=== PATIENT | male | born 1990 | race Caucasian/White ===

== ENCOUNTER 2018-02-09 07:00 | Inpatient (IN) | payer MEDICAID ==
[~2018-02-09] VITALS: Ht 175.3 cm; Wt 72.6 kg
[2018-02-09] VITALS (12 sets, daily range): BP systolic 100–133; BP diastolic 55–89
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
[2018-02-09] MEDS ORDERED: ceFAZolin 1gm/50ml Premix 50 ML IV ONE (07:15)
[2018-02-09] MEDS ORDERED: HYDROmorphone 1mg/ml Carpuject IVP ONE ×2 (07:15→08:15)
[2018-02-09] MEDS ORDERED: DiphenhydrAMINE 50mg/ml Inj IVP ONE (07:15)
[2018-02-09 07:32] LABS: HEMATOCRIT 48.8 % (42.0-52.0); HEMOGLOBIN 16.4 G/DL (14.2-18.0); LYMPHOCYTES % (AUTO) 40.2 % (20.0-45.0); MEAN CORPUSCULAR VOLUME 86 FL (80-99); NEUTROPHILS % (AUTO) 46.9 % (45.0-75.0); PLATELET COUNT 247 K/UL (150-450); RED BLOOD COUNT 5.66 M/UL (4.70-6.10); RED CELL DISTRIBUTION WIDTH 10.8 % (11.6-14.8)
[2018-02-09 07:36] LABS: INR 1.1 (0.9-1.1)
[2018-02-09 07:37] LABS: ANION GAP 9 mmol/L (5-15); BLOOD UREA NITROGEN 15 mg/dL (7-18); CALCIUM 8.6 MG/DL (8.5-10.1); CARBON DIOXIDE 25 MMOL/L (21-32); CHLORIDE 106 MMOL/L (98-107); POTASSIUM 3.8 MMOL/L (3.5-5.1); SODIUM 140 MMOL/L (136-145)
[2018-02-09 07:54] LABS: ALANINE AMINOTRANSFERASE 22 U/L (12-78); ALBUMIN 4.1 G/DL (3.4-5.0); ALBUMIN/GLOBULIN RATIO 1.1 (1.0-2.7); ALKALINE PHOSPHATASE 57 U/L (46-116); ASPARTATE AMINO TRANSFERASE 22 U/L (15-37); BILIRUBIN,TOTAL 0.7 MG/DL (0.2-1.0); CKMB 1.3 NG/ML (0.0-3.6); CREATINE KINASE 148 U/L (26-308)
[2018-02-09] MEDS ORDERED: Lidocaine 1% MPF 10mg/ml 5ml IM ONE (08:15)
[2018-02-09] MEDS ORDERED: Bacitracin Oint UD TOPIC ONE (08:15)
[2018-02-09] MEDS ORDERED: fentaNYL 100 mcg/2 mL IV ONE ×3 (08:45→14:00)
[2018-02-09] MEDS ORDERED: NKM (08:56)
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
--- NOTE | 2018-02-09 12:24 | Pre-Procedure Note/Attestation ---
Pre-Procedure Note/Attestation Complete Prior to Procedure Planned Procedure: left Procedure Narrative: Left both bone open forearm fracture ORIF Indications for Procedure Pre-Operative Diagnosis: Left open both bone forearm fracture Attestation I attest that I discussed the nature of the procedure; its benefits; risks and complications; and alternatives (and the risks and benefits of such alternatives ), prior to the procedure, with the patient (or the patient's legal client care representative). I attest that, if there was a reasonable possibility of needing a blood transfusion, the patient (or the patient's legal client care representative) was given the [facility] standardized written summary, pursuant to the [place] Blood Safety Act ([place] Health and Safety Code # 1645, as amended). I attest that I re-evaluated the patient just prior to the surgery and that there has been no change in the patient's H&P, except as documented below: Robert Sanchez MD Feb 09, 2018 12:24
[2018-02-09] MEDS ORDERED: NS Irrig 1000ml ONE (12:40)
[2018-02-09] MEDS ORDERED: LR 1000ml ONE (12:40)
[2018-02-09] MEDS ORDERED: Sterile Water Irrig 1000ml IRRIG ONE (12:40)
[2018-02-09] MEDS ORDERED: Bacitracin 50000 Units Vial ONE ×2 (12:49→13:09)
[2018-02-09] MEDS ORDERED: NeoSporin Gu Irrig 1ml Amp IRRIG ONE (12:49)
[2018-02-09] MEDS ORDERED: Ropivacaine 5mg/ml Vial 30ml INJ ONE (12:49)
[2018-02-09] MEDS ORDERED: Propofol 200mg/20ml IV ONE ×2 (12:59→15:23)
[2018-02-09] MEDS ORDERED: Lidocaine 1% MPF 10mg/ml 5ml ONE ×2 (12:59→15:23)
--- NOTE | 2018-02-09 13:31 | Anethesia Preoperative Eval ---
Anesthesia Pre-op PMH/ROS General Date of Evaluation: Feb 09, 2018 Time of Evaluation: 12:00 ASA Score: ASA 1 Mallampati Score Class I : Soft palate, uvula, fauces, pillars visible Class II: Soft palate, uvula, fauces visible Class III: Soft palate, base of uvula visible Class IV: Only hard plate visible Mallampati Classification: Class I Allergies: Coded Allergies: No Known Allergies (Unverified , 02/09/18) Patient NPO?: Yes NPO Date: Feb 09, 2018 NPO Time: 0530 Anesthesia Pre-op Phys. Exam Physician Exam Last Vital Signs Date Time Temp Pulse Resp B/P (MAP) Pulse Ox O2 Delivery O2 Flow Rate FiO2 02/09/18 11:10 Room Air 02/09/18 11:00 98.6 67 19 127/75 (92) 100 98.6 Airway Exam Mallampati Score: Class I Anesthesia Pre-op A/P Labs Hematology Test 02/09/18 07:07 White Blood Count 7.0 K/UL (4.8-10.8) Red Blood Count 5.66 M/UL (4.70-6.10) Hemoglobin 16.4 G/DL (14.2-18.0) Hematocrit 48.8 % (42.0-52.0) Mean Corpuscular Volume 86 FL (80-99) Mean Corpuscular Hemoglobin 29.0 PG (27.0-31.0) Mean Corpuscular Hemoglobin Concent 33.7 G/DL (32.0-36.0) Red Cell Distribution Width 10.8 % (11.6-14.8) L Platelet Count 247 K/UL (150-450) Mean Platelet Volume 10.1 FL (6.5-10.1) Neutrophils (%) (Auto) 46.9 % (45.0-75.0) Lymphocytes (%) (Auto) 40.2 % (20.0-45.0) Monocytes (%) (Auto) 8.0 % (1.0-10.0) Eosinophils (%) (Auto) 3.0 % (0.0-3.0) Basophils (%) (Auto) 2.0 % (0.0-2.0) Coagulation Test 02/09/18 07:07 Prothrombin Time 11.3 SEC (9.30-11.50) Prothromb Time International Ratio 1.1 (0.9-1.1) Activated Partial Thromboplast Time 24 SEC (23-33) Chemistry Test 02/09/18 07:07 Sodium Level 140 MMOL/L (136-145) Potassium Level 3.8 MMOL/L (3.5-5.1) Chloride Level 106 MMOL/L (98-107) Carbon Dioxide Level 25 MMOL/L (21-32) Anion Gap 9 mmol/L (5-15) Blood Urea Nitrogen 15 mg/dL (7-18) Creatinine 1.0 MG/DL (0.55-1.30) Estimat Glomerular Filtration Rate > 60 mL/min (>60) Glucose Level 114 MG/DL (74-106) H Calcium Level 8.6 MG/DL (8.5-10.1) Total Bilirubin 0.7 MG/DL (0.2-1.0) Aspartate Amino Transf (AST/SGOT) 22 U/L (15-37) Alanine Aminotransferase (ALT/SGPT) 22 U/L (12-78) Alkaline Phosphatase 57 U/L (46-116) Total Creatine Kinase 148 U/L (26-308) Creatine Kinase MB 1.3 NG/ML (0.0-3.6) Creatine Kinase MB Relative Index 0.8 Total Protein 7.7 G/DL (6.4-8.2) Albumin 4.1 G/DL (3.4-5.0) Globulin 3.6 g/dL Albumin/Globulin Ratio 1.1 (1.0-2.7) Nicolette Razo MD Feb 09, 2018 13:31
[2018-02-09] MEDS ORDERED: NS Irrig 4000ml IRRIG ONE (13:33)
[2018-02-09] MEDS ORDERED: Ketorolac 30mg Inj IV PRN ×2 (13:45→16:00)
[2018-02-09] MEDS ORDERED: Morphine Sulfate 10mg/ml Inj ONE (14:49)
--- NOTE | 2018-02-09 15:56 | Immediate Post-Op Evaluation ---
Immediate Post-Op Evalulation Immediate Post-Op Evalulation Procedure: left radius and ulnar ORIF Date of Evaluation: Feb 09, 2018 Time of Evaluation: 15:56 Nausea: No Vomiting: No Nicolette Razo MD Feb 09, 2018 15:56
[2018-02-09] MEDS ORDERED: fentaNYL 100 mcg/2 mL IV PRN (16:00)
--- NOTE | 2018-02-09 16:08 | Brief Operative Note ---
Immediate Post Operative Note Operative Note Pre-op Diagnosis: Left open both bone forearm fracture Procedure: Left both bone fracture ORIF and distal ulna fracture ORIF with I and D Post-op Diagnosis: same as pre-op Findings: consistent w/pre-op dx studies Surgeon: Daniel Anesthesia: general, regional Specimen: yes Complications: none Condition: stable Fluids: 100 ml Estimated Blood Loss: minimal Drains: none Implant(s) used?: Yes Robert Sanchez MD Feb 09, 2018 16:08
[2018-02-09] MEDS: fentaNYL 100 mcg/2 mL IV PRN ×3 (16:40→17:02)
--- NOTE | 2018-02-09 16:46 | Diagnostic Imaging Report ---
Indications: Postoperative Technique: Two views of the left forearm Comparison: 8 hours earlier Findings: Interim surgical reduction of previously demonstrated distal radial fracture with a sideplate and screws, improved and now satisfactory anatomic alignment. 2 separate sideplates and screws are seen reducing the 2 previously demonstrated ulnar fractures, with good anatomic alignment. Impression: Postoperative left forearm, as described. No unusual features
--- NOTE | 2018-02-09 16:54 | Diagnostic Imaging Report ---
INDICATION: Pain, intraoperative TECHNIQUE: Intraoperative imaging Fluoroscopy time: 50.5 seconds Total dose: 0.81143 mGym2 Total number of images: 3 COMPARISON: Earlier the same day FINDINGS: Intraoperative images document surgical repair of previously demonstrated distal radial and ulnar fracture IMPRESSION: Intraoperative imaging, as described
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
== END 2018-02-09 17:15 | disposition home or self-care (01) | DRG 315 ==
LOC: EDBD 07:00 → EMR 07:35 → 3E 07:41 → EDBEDREQ 09:47
PROC: 0PSL04Z Reposition Left Ulna with Internal Fixation Device, Open Approach (ICD-10-PCS; 2018-02-09)
PROC: 0HQ1XZZ Repair Face Skin, External Approach (ICD-10-PCS; 2018-02-09)
PROC: 0PSJ04Z Reposition Left Radius with Internal Fixation Device, Open Approach (ICD-10-PCS; principal; 2018-02-09 13:00)
DX: S52.302B Unspecified fracture of shaft of left radius, initial encounter for open fracture type I or II (principal); S00.81XA Abrasion of other part of head, initial encounter; S52.202B Unspecified fracture of shaft of left ulna, initial encounter for open fracture type I or II; S52.602B Unspecified fracture of lower end of left ulna, initial encounter for open fracture type I or II; V19.9XXA Pedal cyclist (driver) (passenger) injured in unspecified traffic accident, initial encounter; Y93.55 Activity, bike riding; S01.81XA Laceration without foreign body of other part of head, initial encounter
CPT/HCPCS: 29125; 36415; 76001; 80053; 82550; 82553; 85025; 85610; 85730; 96361; 96365; 96375; 96376; 99285; J2405

== ENCOUNTER 2018-02-11 21:50 | Emergency (ER) | payer MEDICAID ==
[~2018-02-11] VITALS: Ht 180.3 cm; Wt 74.8 kg
[~2018-02-11 21:50] MED LIST: NKM
[2018-02-11 21:55] VITALS: BP 152/80
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
[2018-02-11 22:40] VITALS: BP 137/79
== END 2018-02-11 22:40 | disposition home or self-care (01) ==
LOC: EMR 22:15
DX: R60.9 Edema, unspecified (principal); Z98.890 Other specified postprocedural states
CPT/HCPCS: 99282

== ENCOUNTER 2020-06-25 01:17 | Emergency (ER) | payer SELFPAY ==
[~2020-06-25] VITALS: Ht 177.8 cm; Wt 72.6 kg
--- NOTE | 2020-06-25 01:37 | Emergency Room Report ---
History of Present Illness General Chief Complaint: General Complaint Source: Patient Present Illness [facility] This is a 29-year-old male who is right-hand dominant. He presents with chief complaint of right arm pain and dark urine. He was doing arm workout yesterday. Afterward he said his arms are hurting and now swollen. He cannot fully extend it. He has tightness and pain. Pain is 7 out of 10. He said his urine was very dark. He has been drinking a lot of fluids. No nausea no vomiting. No fever or chills. He denies any other complaint. Allergies: Coded Allergies: No Known Allergies (Unverified , 02/09/18) COVID-19 Screening Contact w/high risk pt: No Experienced COVID-19 symptoms?: No COVID-19 Testing performed RN LACTATION CONSULTANT: No Patient History Past Medical History: see triage record, old chart reviewed Past Surgical History: none Pertinent Family History: other Social History: Denies: smoking Immunizations: other Reviewed Nursing Documentation: PMH: Agreed; PSxH: Agreed Nursing Documentation-PMH Past Medical History: No History, Except For Hx Cardiac Problems: No Hx Cancer: No Hx Gastrointestinal Problems: No Hx Neurological Problems: No Review of Systems Eye: Denies: eye pain, blurred vision ENT: Denies: ear pain, nose congestion, throat swelling Respiratory: Denies: cough, shortness of breath Cardiovascular: Denies: chest pain, palpitations Gastrointestinal: Denies: abdominal pain, diarrhea, nausea, vomiting Musculoskeletal: Reports: joint pain, muscle pain; Denies: back pain Skin: Denies: rash Neurological: Denies: headache, numbness Endocrine: Denies: increased thirst, increased urine Hematologic/Lymphatic: Denies: easy bruising All Other Systems: negative except mentioned in HPI Physical Exam Vital Signs Date Time Temp Pulse Resp B/P (MAP) Pulse Ox O2 Delivery O2 Flow Rate FiO2 06/25/20 01:21 98.4 66 18 134/67 (89) 98 Room Air Vitals unremarkable Sp02 EP Interpretation: reviewed, normal General Appearance: well appearing, no apparent distress, alert Head: normocephalic, atraumatic Eyes: bilateral eye PERRL, bilateral eye EOMI ENT: hearing grossly normal, normal pharynx Neck: full range of motion, supple, no meningismus Respiratory: chest non-tender, lungs clear, normal breath sounds Cardiovascular #1: regular rate, rhythm, no murmur Gastrointestinal: normal bowel sounds, non tender, no mass, no organomegaly, no bruit, non-distended Musculoskeletal: back normal, gait/station normal, other - Right arm: He has tenderness on the lateral head of the triceps. There is edema. Decreased range of motion. Normal. Biceps nontender. Psychiatric: mood/affect normal Medical Decision Making Diagnostic Impression: Primary Impression: Triceps strain Qualified Codes: S46.311A - Strain of muscle, fascia and tendon of triceps, right arm, initial encounter Additional Impression: Rhabdomyolysis Qualified Codes: M62.82 - Rhabdomyolysis ER Course This patient presents with swelling to the right elbow upper arm area. He does have tenderness and mild deficiency to the lateral head of the tricep. I suspect he has a small tear versus a strain versus a tendinitis. We will put him in a sling. Fluids given. He does have evidence of rhabdomyolysis but not severe. Will discharge home with expectant management. If not better, may need MRI. Last Vital Signs Date Time Temp Pulse Resp B/P (MAP) Pulse Ox O2 Delivery O2 Flow Rate FiO2 06/25/20 01:21 98.4 66 18 134/67 (89) 98 Room Air Status: improved Disposition: HOME, SELF-CARE Condition: Stable Additional Instructions: Crease fluids. Ice pack to the area. If not better in a week, may need MRI. Follow-up with your doctor for that. Return if worse. Armin Cheng MD Jun 25, 2020 01:37
[2020-06-25 01:52] LABS: APPEARANCE,URINE CLEAR; BILIRUBIN, URINE NEGATIVE (NEGATIVE); COLOR,URINE PALE YELLOW; GLUCOSE, URINE (UA) NEGATIVE (NEGATIVE); KETONES,URINE NEGATIVE (NEGATIVE); LEUKOCYTE ESTERASE ,URINE NEGATIVE (NEGATIVE); NITRITE,URINE NEGATIVE (NEGATIVE); PH,URINE 7 (4.5-8.0); PROTEIN,URINE 1+ (NEGATIVE); UROBILINOGEN,URINE NORMAL MG/DL (0.0-1.0)
[2020-06-25 02:14] VITALS: BP 134/67
[2020-06-25 02:19] LABS: CKMB 31.3 NG/ML (0.0-3.6)
--- NOTE | 2020-06-25 02:20 | NUR ---
Patient walked into ED c/o swollen right arm accompanied for about 3 hours.
--- NOTE | 2020-06-25 02:40 | NUR ---
blood work and urine were sent to the lab . Will continue to monitor
--- NOTE | 2020-06-25 03:00 | NUR ---
Pte was discharge at home as EDP ordred . All instructions were given to the patient, pte verbalized unsdertanding . Pte left the ER stable.
== END 2020-06-25 03:00 | disposition home or self-care (01) ==
LOC: EMR 01:38
DX: S46.311A Strain of muscle, fascia and tendon of triceps, right arm, initial encounter (principal); M62.82 Rhabdomyolysis; X58.XXXA Exposure to other specified factors, initial encounter; Y92.9 Unspecified place or not applicable; R82.90 Unspecified abnormal findings in urine
CPT/HCPCS: 36415; 81003; 82550; 82553; 96360; 99284